=== PATIENT | male | born 1965 | race Two or more races ===

== ENCOUNTER 2020-06-09 16:32 | Inpatient (IN) | payer OTHER ==
[~2020-06-09] VITALS: Ht 170.2 cm; Wt 89.1 kg
[2020-06-09] MEDS ORDERED: ONDANSETRON 2MG/ML, 2ML ONE ×2 (17:20→21:31)
[2020-06-09] MEDS ORDERED: OCTREOTIDE 500 MCG in SODIUM CHLORIDE 0.9% 99 ML IV PRN ×2 (17:30→20:32)
[2020-06-09] MEDS ORDERED: ONDANSETRON 2MG/ML, 2ML IVPush ONE (17:30)
[2020-06-09] MEDS ORDERED: PLEASE ENTER ALLERGIES MC SCH (17:30)
[2020-06-09] MEDS ORDERED: OCTREOTIDE 100MCG/ML, 1ML (0.1MG/ML) IV ONE (17:30)
[2020-06-09] MEDS ORDERED: PANTOPRAZOLE 40 MG IV IVPush ONE (17:30)
[2020-06-09] MEDS ORDERED: PANTOPRAZOLE 40 MG IV ONE (17:45)
[2020-06-09] MEDS ORDERED: OCTREOTIDE 100MCG/ML, 1ML (0.1MG/ML) ONE (17:46)
[2020-06-09] MEDS ORDERED: PANTOPRAZOLE 80 MG in SODIUM CHLORIDE 0.9% 100 ML IV SCH ×2 (18:00→20:32)
[2020-06-09] MEDS ORDERED: CEFTRIAXONE PMX 1GM/50ML 50 ML ONE (18:02)
[2020-06-09 18:04] LABS: BASOPHILS % (AUTO) 1 % (0-1); EOSINOPHILS % (AUTO) 0 % (1-7); LYMPHOCYTES % (AUTO) 10 % (22-44); MEAN CORPUSCULAR HEMOGLOBIN 22.9 pg (27.5-34.5); MEAN PLATELET VOLUME 9.6 fL (7.4-10.4); MONOCYTES % (AUTO) 7 % (2-9); NEUTROPHILS % (AUTO) 82 % (42-75); PLATELET COUNT 146 x10^3/uL (130-400); RED BLOOD COUNT 3.76 x10^6/uL (4.38-5.82); RED CELL DISTRIBUTION WIDTH 19.4 % (9.4-14.8)
[2020-06-09 18:14] LABS: ANION GAP 7 mmol/L (5-15); CHLORIDE 105 mmol/L (98-107); CREATININE 1.07 mg/dL (0.7-1.3)
[2020-06-09 18:15] LABS: ALANINE AMINOTRANSFERASE 40 U/L (12-78); ALBUMIN 3.1 g/dL (3.4-5.0); INTERNATIONAL NORMALIZED RATIO 1.32 (0.93-1.1)
[2020-06-09 18:17] LABS: ALKALINE PHOSPHATASE 99 U/L (45-117); BILIRUBIN,TOTAL 0.9 mg/dL (0.2-1.0); TOTAL PROTEIN 6.7 g/dL (6.4-8.2)
[2020-06-09] MEDS ORDERED: SUCR1TAB PO (18:20)
[2020-06-09] MEDS ORDERED: FURO20TA3 PO (18:20)
[2020-06-09] MEDS ORDERED: SPIR100T4 PO (18:20)
[2020-06-09] MEDS ORDERED: FOLI0.8T5 PO (18:20)
--- NOTE | 2020-06-09 18:21 | NUR ---
PT SITTING ON [facility], FAMILY AT BS. NAD, NO NEEDS AT THIS TIME
[2020-06-09 18:22] LABS: PARTIAL THROMBOPLASTIN TIME < 23 Seconds (25-31)
[2020-06-09 18:26] LABS: MD MORPH REVIEW ONLY
[2020-06-09 18:27] LABS: <PLATELET ESTIMATE> ADEQUATE; <PLT MORPHOLOGY> NORMAL PLT MORPH
[2020-06-09 18:28] LABS: ANISOCYTOSIS 1+; HYPOCHROMIA 2+; MICROCYTOSIS 2+
[2020-06-09 18:29] LABS: OVALOCYTES 1+
[2020-06-09 18:30] LABS: TARGET CELLS 1+
[2020-06-09] MEDS ORDERED: CEFTRIAXONE PMX 1GM/50ML 50 ML IV ONE (18:30)
[2020-06-09] MEDS ORDERED: SODIUM CHLORIDE 0.9% 1,000 ML IV ONE (18:30)
[2020-06-09] MEDS ORDERED: SODIUM CHLORIDE FLUSH 10ML SYR IVF PRN (18:30)
[2020-06-09] MEDS ORDERED: BISACODYL 10 MG SUPP PR PRN (19:00)
[2020-06-09] MEDS ORDERED: SODIUM CHLORIDE FLUSH 10ML SYR IVF ONE (19:00)
[2020-06-09] MEDS ORDERED: ONDANSETRON 2MG/ML, 2ML IVPush PRN ×2 (19:00→22:00)
--- NOTE | 2020-06-09 19:22 | NUR ---
Assumed pt care. Protonix and octreotide gtt started. Pt A&O x 4, appropirate. Pt denies any needs at this time. Family at bedside. Will monitor.
--- NOTE | 2020-06-09 19:45 | NUR ---
Report to Jami SILVA. Pt ready for transport.
--- NOTE | 2020-06-09 20:17 | NUR ---
Covid swab done and sent. Pt to floor.
[2020-06-09 20:36] VITALS: BP 99/61
[2020-06-09] MEDS ORDERED: FENTANYL PF 100 MCG/2ML ONE (20:59)
[2020-06-09] MEDS ORDERED: PHENYLEPHRINE 10 MG/ML ONE (21:04)
[2020-06-09] MEDS ORDERED: SUCCINYLCHOLINE 20 MG/ML, 10ML ONE ×2 (21:04→21:31)
[2020-06-09] MEDS ORDERED: ROCURONIUM 10MG/ML,5ML ONE (21:31)
[2020-06-09] MEDS ORDERED: NEOSTIGMINE 1 MG/ML, 10ML ONE (21:31)
[2020-06-09] MEDS ORDERED: GLYCOPYRROLATE 0.2MG/1ML, 5ML ONE (21:31)
[2020-06-09] MEDS ORDERED: CEFAZOLIN 1,000 MG ONE (21:31)
[2020-06-09] MEDS ORDERED: PROPOFOL 10 MG/ML, 20ML ONE (21:31)
[2020-06-09] MEDS ORDERED: OXYcodone 5 MG/5 ML ORAL.SOL UDC PO PRN (22:00)
[2020-06-09] MEDS ORDERED: PROMETHAZINE 25 MG SUPP PR PRN (22:00)
[2020-06-09] MEDS ORDERED: HYDROmorphone 1 MG/ML, 1ML INJ IVPush PRN (22:00)
[2020-06-09] MEDS ORDERED: PROMETHAZINE 25 MG/ML, 1ML IVPush PRN (22:00)
[2020-06-09] MEDS ORDERED: ACETAMINOPHEN 325 MG TABLET PO PRN (22:00)
[2020-06-09] MEDS ORDERED: FENTANYL PF 100 MCG/2ML IV PRN (22:00)
[2020-06-09] MEDS ORDERED: LORazepam 2 MG/ML, 1ML IVPush PRN (22:00)
[2020-06-09] MEDS: CEFTRIAXONE PMX 1GM/50ML 50 ML IV SCH (22:41)
[2020-06-09] MEDS: SODIUM CHLORIDE 0.9% 1,000 ML IV SCH (22:41)
[2020-06-09] MEDS ORDERED: HYDROmorphone 1 MG/ML, 1ML INJ IV PRN (23:00)
[2020-06-10] VITALS (11 sets, daily range): BP systolic 92–120; BP diastolic 50–73
[2020-06-10 06:28] LABS: ANION GAP 5 mmol/L (5-15); CHLORIDE 110 mmol/L (98-107)
[2020-06-10 06:29] LABS: CREATININE 1.02 mg/dL (0.7-1.3)
[2020-06-10 06:38] LABS: BASOPHILS % (AUTO) 1 % (0-1); EOSINOPHILS % (AUTO) 0 % (1-7); LYMPHOCYTES % (AUTO) 14 % (22-44); MD NO; MEAN CORPUSCULAR HEMOGLOBIN 23.7 pg (27.5-34.5); MEAN CORPUSCULAR HGB CONC 32.8 g/dL (33.2-36.2); MEAN PLATELET VOLUME 9.5 fL (7.4-10.4); MONOCYTES % (AUTO) 14 % (2-9); NEUTROPHILS % (AUTO) 70 % (42-75); PLATELET COUNT 108 x10^3/uL (130-400); RED BLOOD COUNT 3.24 x10^6/uL (4.38-5.82); RED CELL DISTRIBUTION WIDTH 20.1 % (9.4-14.8)
[2020-06-10 08:20] LABS: MICROSCOPIC NOT IND
[2020-06-10] MEDS: SPIRONOLACTONE 100 MG TABLET PO SCH (09:50)
[2020-06-10] MEDS: FUROSEMIDE 40 MG TABLET PO SCH (09:50)
[2020-06-10] MEDS: FOLIC ACID 1 MG TABLET PO SCH (09:50)
[2020-06-10] MEDS: SUCRALFATE 1 GM/10 ML UDC PO SCH ×3 (11:35→20:04)
[2020-06-10] MEDS: OMEPRAZOLE 20 MG CAPSULE.DR PO SCH (11:36)
[2020-06-10] MEDS: RIFAXIMIN 550 MG TABLET PO SCH ×2 (11:36→20:04)
[2020-06-10] MEDS: SODIUM CHLORIDE 0.9% 1,000 ML IV SCH (20:05)
[2020-06-10] MEDS: CEFTRIAXONE PMX 1GM/50ML 50 ML IV SCH (22:56)
[2020-06-11 01:08] VITALS: BP 134/72
[2020-06-11] MEDS: OMEPRAZOLE 20 MG CAPSULE.DR PO SCH (05:26)
[2020-06-11 05:40] LABS: BASOPHILS % (AUTO) 1 % (0-1); EOSINOPHILS % (AUTO) 2 % (1-7); LYMPHOCYTES % (AUTO) 18 % (22-44); MEAN CORPUSCULAR HEMOGLOBIN 24.5 pg (27.5-34.5); MEAN CORPUSCULAR HGB CONC 33.1 g/dL (33.2-36.2); MEAN PLATELET VOLUME 8.7 fL (7.4-10.4); MONOCYTES % (AUTO) 15 % (2-9); NEUTROPHILS % (AUTO) 64 % (42-75); PLATELET COUNT 99 x10^3/uL (130-400); RED BLOOD COUNT 3.09 x10^6/uL (4.38-5.82); RED CELL DISTRIBUTION WIDTH 19.9 % (9.4-14.8)
[2020-06-11 05:53] LABS: ALBUMIN 2.6 g/dL (3.4-5.0); ANION GAP 6 mmol/L (5-15); CALCIUM 7.5 mg/dL (8.5-10.1); CHLORIDE 107 mmol/L (98-107)
[2020-06-11 05:56] LABS: ALANINE AMINOTRANSFERASE 42 U/L (12-78); ALKALINE PHOSPHATASE 77 U/L (45-117); BILIRUBIN,TOTAL 0.8 mg/dL (0.2-1.0); CREATININE 1.08 mg/dL (0.7-1.3); TOTAL PROTEIN 5.8 g/dL (6.4-8.2)
[2020-06-11 06:06] LABS: MD NO
[2020-06-11 08:07] VITALS: BP 99/63
[2020-06-11] MEDS: FOLIC ACID 1 MG TABLET PO SCH (08:15)
[2020-06-11] MEDS: SPIRONOLACTONE 100 MG TABLET PO SCH (08:15)
[2020-06-11] MEDS: RIFAXIMIN 550 MG TABLET PO SCH (08:15)
[2020-06-11] MEDS: SUCRALFATE 1 GM/10 ML UDC PO SCH ×2 (08:15→11:18)
[2020-06-11] MEDS: FUROSEMIDE 40 MG TABLET PO SCH (08:15)
[2020-06-11] MEDS ORDERED: RIFA550T4 PO (13:01)
[2020-06-11] MEDS ORDERED: OMEP-110 PO (13:01)
[2020-06-11] MEDS ORDERED: CARV3.1212 PO (13:01)
[2020-06-11] MEDS ORDERED: CARVEDILOL 3.125 MG TABLET PO SCH (18:00)
== END 2020-06-11 15:42 | disposition home or self-care (01) | DRG 432 ==
LOC: ED 17:28 → EDIP 18:27 → 4EST 20:25 → DCLOUNGE 06-11 15:36
PROVIDERS: ADMIT Internal Medicine; ATTEND Internal Medicine
PROC: 06L38CZ Occlusion of Esophageal Vein with Extraluminal Device, Via Natural or Artificial Opening Endoscopic (ICD-10-PCS; 2020-06-09)
PROC: 30233N1 Transfusion of Nonautologous Red Blood Cells into Peripheral Vein, Percutaneous Approach (ICD-10-PCS; principal; 2020-06-10)
DX: K70.30 Alcoholic cirrhosis of liver without ascites (principal); I85.11 Secondary esophageal varices with bleeding; D62 Acute posthemorrhagic anemia; D68.9 Coagulation defect, unspecified; K76.6 Portal hypertension; K31.89 Other diseases of stomach and duodenum; Z87.891 Personal history of nicotine dependence; Z20.822 Contact with and (suspected) exposure to COVID-19; D50.9 Iron deficiency anemia, unspecified
CPT/HCPCS: 36415; 36430; 71045; 80048; 80053; 80320; 81003; 82728; 83540; 83550; 83605; 83690; 83735; 85014; 85018; 85025; 85610; 85730; 86850; 86900; 86923; 87040; 87635; 93005; 96374; 96375; G0378; J0690; J0696; J2354; J2405; J2704; J2710; J3010; C9113; G0480; J0330; J2370; J7030; P9016